=== PATIENT | female | born 1950 | race African-American/Black ===

== ENCOUNTER 2019-06-17 22:18 | Emergency (ER) | payer OTHER ==
[~2019-06-17] VITALS: Ht 157.5 cm; Wt 64.9 kg
[~2019-06-17 22:18] MED LIST: BENADRYL50 MG PO; PREDNISONE5 MG/DOSE- PO
[2019-06-17] MEDS ORDERED: GLUCOTROL XL5 MG (22:41)
== END 2019-06-18 04:26 | disposition home or self-care (01) ==
LOC: ER 22:18
DX: I16.0 Hypertensive urgency (principal); I10 Essential (primary) hypertension; R50.9 Fever, unspecified